=== PATIENT | male | born 1980 | race African-American/Black ===

== ENCOUNTER 2018-05-26 08:26 | Emergency (ER) | payer BC ==
[~2018-05-26] VITALS: Ht 177.8 cm; Wt 86.2 kg
[2018-05-26] MEDS ORDERED: PREDNISONE50 MG PO (10:37)
[2018-05-26 11:07] VITALS: BP 114/68
== END 2018-05-26 11:07 | disposition home or self-care (01) ==
LOC: ER 08:26
DX: L50.9 Urticaria, unspecified (principal)